=== PATIENT | male | born 1990 | race Caucasian/White ===

== ENCOUNTER 2017-03-22 15:57 | Emergency (ER) | payer OTHER ==
[~2017-03-22] VITALS: Ht 167.6 cm; Wt 66.0 kg
[2017-03-22 16:05] VITALS: BP 130/64; PULSE 135; RESP 26; TEMP 98.4; O2SAT 98
[2017-03-22] MEDS ORDERED: INHALER (16:16)
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
[2017-03-22] MEDS ORDERED: LORazepam 2 MG/ML VIAL IV PUSH ONE (17:00)
--- NOTE | 2017-03-22 17:25 | RADRPT ---
EXAM DATE/TIME: 03/22/2017 17:06 [facility] COMPARISON: No previous studies available for comparison. INDICATIONS : Wheezing. MEDICAL HISTORY : None. SURGICAL HISTORY : None. ENCOUNTER: Initial ACUITY: 1 day PAIN SCORE: 0/10 LOCATION: Bilateral chest FINDINGS: A single view of the chest demonstrates the lungs to be symmetrically aerated without evidence of mas s, infiltrate or effusion. The cardiomediastinal contours are unremarkable. Osseous structures are intact. CONCLUSION: No acute disease. There is no evidence of pneumonia. Clifford Desai MD on March 22, 2017 at 17:22 Board Certified Radiologist. This report was verified electronically.
[2017-03-22] MEDS ORDERED: LORazepam 1 MG TAB PO ONE (17:30)
[2017-03-22 17:34] LABS: AUTOMATED NEUTROPHIL # 7.2 TH/MM3 (1.8-7.7); BASOPHIL % 0.4 % (0.0-2.0); EOSINOPHIL % 0.2 % (0.0-4.0); HEMATOCRIT 42.9 % (39.0-51.0); HEMOGLOBIN 14.7 GM/DL (13.0-17.0); LYMPH % 12.5 % (9.0-44.0); LYMPHOCYTE # 1.1 TH/MM3 (1.0-4.8); MEAN CELL VOLUME 87.6 FL (80.0-100.0); MEAN CORPUSCULAR HGB CONC 34.3 % (32.0-36.0); MEAN PLATELET VOLUME 7.7 FL (7.0-11.0); MONO % 7.8 % (0.0-8.0); MONOCYTE # 0.7 TH/MM3 (0-0.9); NEUT % 79.1 % (16.0-70.0); PLATELET COUNT 300 TH/MM3 (150-450); RED CELL DISTRIBUTION WIDTH 14.4 % (11.6-17.2); WHITE BLOOD COUNT 9.1 TH/MM3 (4.0-11.0)
[2017-03-22 18:27] LABS: ALBUMIN 4.4 GM/DL (3.4-5.0); ALKALINE PHOSPHATASE 86 U/L (45-117); ALT (GPT) 27 U/L (12-78); AST (GOT) 29 U/L (15-37); BICARBONATE 26.4 MEQ/L (21.0-32.0); BLOOD UREA NITROGEN 12 MG/DL (7-18); CALCIUM 8.9 MG/DL (8.5-10.1); CHLORIDE 103 MEQ/L (98-107); CREATININE 1.15 MG/DL (0.60-1.30); GLOMERULAR FILTRATION RATE 76 ML/MIN (>89); GLUCOSE,RANDOM 97 MG/DL (74-106); SODIUM (NA) 138 MEQ/L (136-145); TOTAL BILIRUBIN ADULT 0.5 MG/DL (0.2-1.0); TOTAL PROTEIN 8.9 GM/DL (6.4-8.2)
[2017-03-22] MEDS ORDERED: POTASSIUM CHLORIDE 10 MEQ CONTROLLED RELEASE TAB PO ONE (18:30)
[2017-03-22 19:00] VITALS: BP 127/95; PULSE 110; RESP 16; O2SAT 99
[2017-03-22 19:40] LABS: MAGNESIUM 2.6 MG/DL (1.5-2.5)
[2017-03-22 20:39] VITALS: BP 132/81; PULSE 97; RESP 16; O2SAT 100
--- NOTE | 2017-03-22 20:44 | PD ---
Physical Exam Narrative Patient signed out to me at shift change pending laboratory examinations and medical clearance. Patient is under Islas act and incarceration. Patient's laboratory examinations reviewed, positive tox screen for methamphetamines. Patient is currently not exhibiting any toxidromes. Discharge Data Data Last Documented VS Vital Signs Date Time Temp Pulse Resp B/P (MAP) Pulse Ox O2 Delivery O2 Flow Rate FiO2 03/22/17 20:39 97 16 132/81 (98) 100 Room Air 03/22/17 16:05 98.4 Orders Orders Complete Blood Count With Diff (03/22/17 16:46) Comprehensive Metabolic Panel (03/22/17 16:46) Thyroid Stimulating Hormone (03/22/17 16:46) Psych Screen (03/22/17 16:46) Lorazepam Inj (Ativan Inj) (03/22/17 17:00) Drug Screen, Random Urine (03/22/17 16:46) Alcohol (Ethanol) (03/22/17 16:46) Electrocardiogram (03/22/17 16:09) Chest, Single Ap (03/22/17 17:01) Lorazepam (Ativan) (03/22/17 17:30) Potassium Chloride (Kcl) (03/22/17 18:30) Magnesium (Mg) (03/22/17 17:20) Labs Laboratory Tests Test 03/22/17 17:20 03/22/17 19:45 White Blood Count 9.1 TH/MM3 Red Blood Count 4.90 MIL/MM3 Hemoglobin 14.7 GM/DL Hematocrit 42.9 % Mean Corpuscular Volume 87.6 FL Mean Corpuscular Hemoglobin 30.0 PG Mean Corpuscular Hemoglobin Concent 34.3 % Red Cell Distribution Width 14.4 % Platelet Count 300 TH/MM3 Mean Platelet Volume 7.7 FL Neutrophils (%) (Auto) 79.1 % Lymphocytes (%) (Auto) 12.5 % Monocytes (%) (Auto) 7.8 % Eosinophils (%) (Auto) 0.2 % Basophils (%) (Auto) 0.4 % Neutrophils # (Auto) 7.2 TH/MM3 Lymphocytes # (Auto) 1.1 TH/MM3 Monocytes # (Auto) 0.7 TH/MM3 Eosinophils # (Auto) 0.0 TH/MM3 Basophils # (Auto) 0.0 TH/MM3 CBC Comment DIFF FINAL Differential Comment Blood Urea Nitrogen 12 MG/DL Creatinine 1.15 MG/DL Random Glucose 97 MG/DL Total Protein 8.9 GM/DL Albumin 4.4 GM/DL Calcium Level 8.9 MG/DL Magnesium Level 2.6 MG/DL Alkaline Phosphatase 86 U/L Aspartate Amino Transf (AST/SGOT) 29 U/L Alanine Aminotransferase (ALT/SGPT) 27 U/L Total Bilirubin 0.5 MG/DL Sodium Level 138 MEQ/L Potassium Level 2.9 MEQ/L Chloride Level 103 MEQ/L Carbon Dioxide Level 26.4 MEQ/L Anion Gap 9 MEQ/L Estimat Glomerular Filtration Rate 76 ML/MIN Thyroid Stimulating Hormone 3rd Gen 0.855 uIU/ML Ethyl Alcohol Level LESS THAN 3 MG/DL Urine Opiates Screen NEG Urine Barbiturates Screen NEG Urine Amphetamines Screen POS Urine Benzodiazepines Screen NEG Urine Cocaine Screen NEG Urine Cannabinoids Screen NEG MDM Medical Record Reviewed: Yes Supervised Visit with KAROLINA: Yes Differential Diagnosis Intoxication, altered mental status, paranoid delusions Narrative Course Patient medically cleared for incarceration. [facility]rically at [facility]. Diagnosis Primary Impression: Paranoia Additional Impressions: Asthma exacerbation Qualified Codes: J45.901 - Unspecified asthma with (acute) exacerbation Hypokalemia Patient Instructions: General Instructions, Hypokalemia (ED) Additional Instruction: Follow-up with [facility] physician and psychiatrist Disposition: 01 DISCHARGE HOME Condition: Stable Emil Palumbo MD Mar 22, 2017 20:44
--- NOTE | 2017-03-23 17:02 | EKG ---
Date Performed: 03/22/2017 Time Performed: 16:09:29 PTAGE: 27 years EKG: SINUS TACHYCARDIA ABNORMAL RHYTHM ECG NO PREVIOUS TRACING DOCTOR: Les Carson Interpretating Date/Time 03/23/2017 17:02:21
== END 2017-03-22 20:59 | disposition home or self-care (01) ==
LOC: NEPE 15:57
DX: J45.901 Unspecified asthma with (acute) exacerbation (principal); E87.6 Hypokalemia; F22 Delusional disorders; R00.0 Tachycardia, unspecified; R94.31 Abnormal electrocardiogram [ECG] [EKG]; J45.909 Unspecified asthma, uncomplicated; Z21 Asymptomatic human immunodeficiency virus [HIV] infection status; Z72.0 Tobacco use
CPT/HCPCS: 71045; 80053; 80307; 83735; 84443; 85025; 93005